=== PATIENT | female | born 1975 | race Caucasian/White ===

== ENCOUNTER → 2017-01-29 | Outpatient (REF) | payer OTHER ==
[~2017-01-29] MED LIST: *ANUSOI RE; /ONDA4TA OR; /PANT40TA PO; /PROM25SU RE; /SUCR1TA OR; ALPR0.5T3 OR; CHAN0.5P6 PO; CIPR500T89 PO; FLAG500T PO; FLECTOR1.3 TOP; IBUP600T26 PO; LORA0.5T OR; METO10TA2 OR; MIRALAX PO; MULTIVIT OR; OMEP20TA7 OR; PAXI40TA OR; PHEN 25 PO; PRIL40CA OR; PROP40TA OR; REGL10TA6 PO; SENO8.6T9 PO; VICO5TAB PO; WELCHOL PO; XANA0.5T PO; [UNRECOGNIZED DRUG - OTHER] OR; [UNRECOGNIZED DRUG - OTHER] PO
[2017-01-29 14:14] LABS: BASO % 0.3 % (0.0-1.0); EOS # 0.3 K/mm3 (0.0-0.50); EOS % 2.7 % (0.0-3.0); LARGE UNSTAINED CELL # 0.1 K/mm3 (0.0-0.4); LARGE UNSTAINED CELL % 1.3 % (0.0-4.0); LYMPH # 3.4 K/mm3 (1.5-4.5); LYMPH % 32.3 % (24.0-44.0); MEAN CORPUSCULAR HGB CONC 33.3 g/dl (32.0-36.5); MEAN CORPUSCULAR VOLUME 93.1 fl (80.0-96.0); MONO # 0.6 K/mm3 (0.0-0.8); MONO % 5.8 % (0.0-5.0); NEUTROPHILS # 6.1 K/mm3 (1.8-7.7); NEUTROPHILS % 57.5 % (36.0-66.0); PLATELET COUNT, AUTOMATED 373 k/mm3 (150-450); RED CELL DISTRIBUTION WIDTH 12.9 % (11.5-14.5); WHITE BLOOD COUNT 10.6 K/mm3 (4.0-10.0)
[2017-01-29 14:27] LABS: FOLATE 11.9 NG/ML; VITAMIN B12 LEVEL 408 PG/ML
[2017-01-29 15:17] LABS: ALBUMIN 3.8 GM/DL (3.2-5.2); ALBUMIN/GLOBULIN RATIO 1.12 (1.00-1.93); ALKALINE PHOSPHATASE 86 U/L (45-117); ALT/SGPT 20 U/L (12-78); ANION GAP 3 MEQ/L (8-16); AST/SGOT 10 U/L (15-37); BILIRUBIN,TOTAL 0.3 MG/DL (0.2-1.0); BLOOD UREA NITROGEN 6 MG/DL (7-18); CALCIUM LEVEL 8.9 MG/DL (8.5-10.1); CARBON DIOXIDE LEVEL 26 MEQ/L (21-32); CHLORIDE LEVEL 108 MEQ/L (98-107); CREATININE FOR GFR 0.63 MG/DL (0.55-1.02); FREE T4 0.93 NG/DL (0.76-1.46); GLOMERULAR FILTRATION RATE > 60.0 (>60); GLUCOSE, FASTING 102 MG/DL (70-105); POTASSIUM SERUM 4.4 MEQ/L (3.5-5.1); SODIUM LEVEL 137 MEQ/L (136-145); TOTAL PROTEIN 7.2 GM/DL (6.4-8.2)
[2017-01-29 15:18] LABS: ERYTHROCYTE SEDIMENTATION RATE 21 mm/hr (0-20)
[2017-02-03 00:10] LABS: SJOGREN'S ANTI SS-A <0.2 AI (0.0-0.9); VITAMIN E LEVEL 16.4 mg/L (5.3-16.8)
== END ==
LOC: M LABNEURO 13:35
PROVIDERS: ATTEND Psychiatry & Neurology Neurology
DX: R41.3 Other amnesia (principal); E07.9 Disorder of thyroid, unspecified; M79.7 Fibromyalgia

== ENCOUNTER → 2018-09-23 | Outpatient (REF) | payer BC | LOC: M SFHCLERA 14:30 | PROVIDERS: ATTEND Physician Assistant | DX: R52 Pain, unspecified (principal) ==